=== PATIENT | male | born 1980 | race Caucasian/White ===

== ENCOUNTER 2024-04-27 14:43 | Outpatient (REF) | payer OTHER, SELFPAY ==
[2024-04-27 15:39] LABS: Anion Gap 9.5 mmol/L (3-11); BUN 12 mg/dL (7-18); CO2 28.5 mmol/L (21.0-32.0); Calcium 9.3 mg/dL (8.5-10.1); Calculated LDL 188 mg/dL (<100); Chloride 106 mmol/L (98-107); Cholesterol 282 mg/dL (<200); Estimated GFR 94.59 (mL/min/1.73m2); Glucose 105 mg/dL (74-106); HDL Cholesterol 70 mg/dL (40-60); Potassium 4.4 mmol/L (3.5-5.1); Sodium 144 mmol/L (136-145); TSH (W/Ref FT4) 2.95 uIU/mL (0.36-3.74); Triglyceride 123 mg/dL (<150)
[2024-04-28 10:04] LABS: HIV-1/2 Ag & Ab Screen Negative (Negative)
[2024-04-28 10:11] LABS: Hepatitis C Ab w Rflx HCV PCR Negative (Negative)
== END 2024-04-27 14:44 | disposition home or self-care (01) ==
LOC: NCHCN 14:43
PROVIDERS: PCP Family Medicine; Visit Provider Family Medicine
DX: E78.5 Hyperlipidemia, unspecified (principal); R94.6 Abnormal results of thyroid function studies; Z11.4 Encounter for screening for human immunodeficiency virus [HIV]; Z11.59 Encounter for screening for other viral diseases
CPT/HCPCS: 80048; 80061; 86803; 87389; 84443